=== PATIENT | female | born 1960 | race Caucasian/White ===

== ENCOUNTER 2019-10-04 19:24 | Emergency (ER) | payer OTHER ==
--- NOTE | 2019-10-04 22:19 | EDPHYS ---
Physician Documentation [facility] Name: Kika Larson Age: 59 yrs Sex: Female : 1960 Arrival Date: 10/04/2019 Time: 19: Bed 20 Private MD: ED Physician Yobani Plata HPI: 10/04 20:47 This 59 yrs old Female presents to ER via Ambulatory with complaints of Hip rn Pain. 20:47 The patient or guardian reports pain. that occurred at home, sustained from misstep rn There is no obvious deformity, The patient is able to self ambulate. The patient is able to bear their full body weight. The complaints affect the right hip. Onset: The symptoms/episode began/occurred just prior to arrival. Modifying factors: The symptoms are alleviated by remaining still, the symptoms are aggravated by weight bearing. Associated signs and symptoms: Pertinent positives: None. Pertinent negatives: fever, incontinence, weakness. Severity of symptoms: At their worst the symptoms were mild, in the emergency department the symptoms are unchanged. The patient has experienced similar episodes in the past. Reports right hip pain, was standing in kitchen, stepped to side, not sure if twisted, but heard pop, then had right hip pain, no fall, no fever, has had problems with right hip before starting as baby, no previous fracture or dislocation. . 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 - Coronavirus screen:: The patient has NOT traveled to [place], [place], or [place] in the past 14 days. Proceed with normal triage process as indicated. The patient has NOT had contact with known/suspected case of Coronavirus? Proceed with normal triage procedures. - Social history:: Smoking status: Patient reports the use of cigarette tobacco products, smokes two packs cigarettes per day. - Family history:: not pertinent. - Ebola Screening: : No symptoms or risks identified at this time. - Hospitalizations: : No recent hospitalization is reported. ROS: 20:47 Constitutional: Negative for fever, chills, and weight loss, Eyes: Negative for injury, rn pain, redness, and discharge, Cardiovascular: Negative for chest pain, palpitations, and edema, Respiratory: Negative for shortness of breath, cough, wheezing, and pleuritic chest pain, Abdomen/GI: Negative for abdominal pain, nausea, vomiting, diarrhea, and constipation, Back: Negative for injury and pain, MS/Extremity: + right hip pain Neuro: Negative for headache, weakness, numbness, tingling, and seizure. Exam: 20:47 Constitutional: This is a well developed, well nourished patient who is awake, alert, rn and in no acute distress. Abdomen/GI: soft, non-tender Back: No spinal tenderness. No costovertebral tenderness. Full range of motion. MS/ Extremity: Pulses equal, no cyanosis. Neurovascular intact. + mild painful ROM right hip with lateral tenderness, no deformity, able to ambulate with limp Neuro: Awake and alert, GCS 15, oriented to person, place, time, and situation. Cranial nerves II-XII grossly intact. Motor strength 5/5 in all extremities. Sensory grossly intact. Cerebellar exam normal. Normal gait. Vital Signs: 20:04 BP 140 / 78; Pulse 85; Resp 17; Temp 98.4; Pulse Ox 99% ; Weight 117.93 kg; Pain 6/10; rv 21:09 BP 128 / 82; Pulse 80; Resp 18; Pulse Ox 99% ; wh 22:24 BP 124 / 78; Pulse 73; Resp 18; Pulse Ox 98% ; wh MDM: 20:09 Patient medically screened. rn 22:18 Differential diagnosis: hip fracture, intertrochanteric fracture, bursitis, arthritis, rn strain. Data reviewed: vital signs, nurses notes, radiologic studies, plain films, and as a result, I will discharge patient. Test interpretation: by ED physician or midlevel provider: plain radiologic studies, Xray pelvis and right hip neg for fracture/dislocation. Counseling: I had a detailed discussion with the patient and/or guardian regarding: the historical points, exam findings, and any diagnostic results supporting the discharge/admit diagnosis, radiology results, the need for outpatient follow up, to return to the emergency department if symptoms worsen or persist or if there are any questions or concerns that arise at home. Special discussion: I discussed with the patient/guardian in detail that at this point there is no indication for admission to the hospital. It is understood, however, that if the symptoms persist or worsen the patient needs to return immediately for re-evaluation. Further emergent ED testing is not indicated at this point in time. I discussed with the patient/guardian in detail the need to arrange with the PCP or specialist further outpatient testing, MRI. Administered Medications: No medications were administered Disposition: 10/04/19 22:19 Discharged to Home. Impression: Strain of muscle, fascia and tendon of right hip. - Condition is Stable. - Discharge Instructions: Hip Bursitis, Muscle Strain, Hip Pain. - Prescriptions for Medrol (Pravin) 4 mg Oral Tablets, Dose Pack - take 1 tablet by ORAL route as directed - follow package instructions; 1 packet. Cyclobenzaprine 5 mg Oral Tablet - take 1 tablet by ORAL route 3 times per day As needed; 15 tablet. - Medication Reconciliation Form, Thank You Letter, Antibiotic Education, Prescription Opioid Use form. - Follow up: Private Physician; When: As needed; Reason: Recheck today's complaints, Re-evaluation by your physician. - Problem is new. - Symptoms have improved. Signatures: Dispatcher [employer] EDMS Yobani Plata MD MD rn Habalo, Winsy wh Vicente, Ronaldo, RN RN rv Corrections: (The following items were deleted from the chart) 22: 22:19 10/04/2019 22:19 Discharged to Home. Impression: Strain of muscle, fascia and wh tendon of right hip. Condition is Stable. Forms are Medication Reconciliation Form, Thank You Letter, Antibiotic Education, Prescription Opioid Use. Follow up: Private Physician; When: As needed; Reason: Recheck today's complaints, Re-evaluation by your physician. Problem is new. Symptoms have improved. rn
--- NOTE | 2019-10-04 22:19 | ER ---
Nurse's Notes [facility] Name: Kika Larson Age: 59 yrs Sex: Female : 1960 Arrival Date: 10/04/2019 Time: 19:26 Bed 20 Private MD: Diagnosis: Strain of muscle, fascia and tendon of right hip Presentation: 10/04 20:02 Presenting complaint: Patient states: THROBBING PAIN ON THE RIGHT HIP RADIATES DOWN TO rv THE KNEE. SHE WAS IN THE KITCHEN AND TURNING TO THE SIDE, FELT SUDDEN PAIN. Transition of care: patient was not received from another setting of care. Onset of symptoms was October 04, 2019 at 18:00. Risk Assessment: Do you want to hurt yourself or someone else? Patient reports no desire to harm self or others. Initial Sepsis Screen: Does the patient meet any 2 criteria? No. Patient's initial sepsis screen is negative. Does the patient have a suspected source of infection? No. Patient's initial sepsis screen is negative. Care prior to arrival: None. 20:02 Method Of Arrival: Ambulatory rv 20:02 Acuity: MILTON 4 rv Historical: - Allergies: 20:06 Aspirin; rv - PMHx: 20:06 COPD; AUTONOMIC NERVOUS DYSFUNCTION; Arthritis; SMALL BLOCKAGE ON THE CAROTID ARTERY; rv - PSHx: 20:06 D \T\ C; Carpal Tunnel Repair; Cholecystectomy; rv - Immunization history:: Adult Immunizations up to date. - Coronavirus screen:: The patient has NOT traveled to [place], [place], or [place] in the past 14 days. Proceed with normal triage process as indicated. The patient has NOT had contact with known/suspected case of Coronavirus? Proceed with normal triage procedures. - Social history:: Smoking status: Patient reports the use of cigarette tobacco products, smokes two packs cigarettes per day. - Family history:: not pertinent. - Ebola Screening: : No symptoms or risks identified at this time. - Hospitalizations: : No recent hospitalization is reported. Screenin:10 Abuse screen: Denies threats or abuse. Denies injuries from another. Nutritional wh screening: No deficits noted. Tuberculosis screening: No symptoms or risk factors identified. Fall Risk None identified. Assessment: 20:10 General: Appears in no apparent distress. Behavior is calm, cooperative, appropriate wh for age. Pain: Complains of pain in Right hip Pain radiates to right leg Pain currently is 3 out of 10 on a pain scale. Quality of pain is described as throbbing. Neuro: Level of Consciousness is awake, alert, obeys commands, Oriented to person, place, time, situation, Appropriate for age. Cardiovascular: Capillary refill < 3 seconds. Respiratory: Airway is patent Respiratory effort is even, unlabored, Respiratory pattern is regular, symmetrical. GI: Abdomen is flat, non-distended. : No signs and/or symptoms were reported regarding the genitourinary system. EENT: No signs and/or symptoms were reported regarding the EENT system. Derm: Skin is intact, is healthy with good turgor, Skin is pink, warm \T\ dry. normal. Musculoskeletal: Circulation, motion, and sensation intact. 21:09 Reassessment: Patient appears in no apparent distress at this time. No changes from previously documented assessment. Patient and/or family updated on plan of care and expected duration. Pain level reassessed. Patient is alert, oriented x 3, equal unlabored respirations, skin warm/dry/pink. 22:24 Reassessment: Patient appears in no apparent distress at this time. No changes from previously documented assessment. Patient and/or family updated on plan of care and expected duration. Pain level reassessed. Patient is alert, oriented x 3, equal unlabored respirations, skin warm/dry/pink. Vital Signs: 20:04 BP 140 / 78; Pulse 85; Resp 17; Temp 98.4; Pulse Ox 99% ; Weight 117.93 kg; Pain 6/10; rv 21:09 BP 128 / 82; Pulse 80; Resp 18; Pulse Ox 99% ; wh 22:24 BP 124 / 78; Pulse 73; Resp 18; Pulse Ox 98% ; ED Course: 19:26 Patient arrived in ED. ds1 20:04 Triage completed. rv 20:07 Arm band placed on. rv 20:09 Yobani Plata MD is Attending Physician. rn 20:10 Patient has correct armband on for positive identification. Bed in low position. Call light in reach. Side rails up X 1. Pulse ox on. NIBP on. 20:14 Grace Fregoso is Primary Nurse. wh 21:03 XRAY Pelvis In Process Unspecified. EDMS 21:03 XRAY Hip RIGHT 2 view In Process Unspecified. EDMS 22:25 No provider procedures requiring assistance completed. Patient did not have IV access during this emergency room visit. 10/05 08:05 XRAY Pelvis In Process Unspecified. EDMS 08:05 XRAY Hip RIGHT 2 view In Process Unspecified. EDMS Administered Medications: No medications were administered Outcome: 10/04 22:19 Discharge ordered by . rn 22:25 Discharged to home ambulatory, with family. 22:25 Condition: stable 22:25 Discharge instructions given to patient, family, Instructed on discharge instructions, follow up and referral plans. medication usage, POC Demonstrated understanding of instructions, follow-up care, medications, POC Prescriptions given X 2. 22:26 Patient left the ED. Signatures: Dispatcher [employer] EDCO HunterAilyn ds1 Yobani Plata MD MD rn Habalo, Grace Alexandro Herr RN RN rv
[2019-10-04 22:49] VITALS: TEMP 98.4
[2019-10-04 22:52] VITALS: BP 124/78; O2SAT 98
--- NOTE | 2019-10-05 07:55 | RAD REPORT ---
EXAM DESCRIPTION: RAD - Pelvis - 10/04/2019 9:02 pm CLINICAL HISTORY: Right hip pain FINDINGS: No fracture or dislocation is seen. The bones are osteoporotic. Mild osteoarthritis involves the hips consisting joint space narrowing and subchondral sclerosis An erosion involves right inferior pubic ramus. It likely is benign. Follow up x-ray in 3 months marylou mmended to assess stability
--- NOTE | 2019-10-05 07:55 | RAD REPORT ---
EXAM DESCRIPTION: RAD - Hip Right 2 View - 10/04/2019 9:04 pm CLINICAL HISTORY: Right hip pain FINDINGS: No fracture or dislocation is seen. The bones are osteoporotic. Mild osteoarthritis involves the right hip consisting joint space narro wing and subchondral sclerosis An erosion involves the right inferior pubic ramus. It likely is benign. Follow up x-ray in 3 months recommended to assess stability
--- NOTE | 2019-10-05 13:48 | RAD REPORT ---
EXAM DESCRIPTION: RAD - Pelvis - 10/05/2019 9:18 am CLINICAL HISTORY: 59 years Female, PAIN COMPARISON: None. FINDINGS: No fracture or dislocation. Bone mineralization is normal. Joint spaces are preserved. Mild changes of the right hip. Incompletely characterized soft tissue swelling in the lateral proximal thigh. Scattered bilateral enthesophytes. IMPRESSION: No acute osseous abnormality. Electronically signed by: Marcello Lees DO 10/04/2019 10:08 PM SURGICAL SUPERVISOR Due to temporary technical issues with the PACS/Fluency reporting system, reports are being signed by the in house radiologist as a courtesy to ensure prompt reporting. The interpreting radiologist is f ully responsible for the content of the report.
--- NOTE | 2019-10-05 13:49 | RAD REPORT ---
EXAM DESCRIPTION: RAD - Hip Right 2 View - 10/05/2019 9:18 am CLINICAL HISTORY: 59 years Female, PAIN COMPARISON: None. FINDINGS: No fracture or dislocation. Bone mineralization is normal. Joint spaces are preserved. Mild changes of the right hip. Incompletely characterized soft tissue swelling in the lateral proximal thigh. Scattered bilateral enthesophytes. IMPRESSION: No acute osseous abnormality. Electronically signed by: Marcello Lees DO 10/04/2019 10:08 PM FERN CUTTER Due to temporary technical issues with the PACS/Fluency reporting system, reports are being signed by the in house radiologist as a courtesy to ensure prompt reporting. The interpreting radiologist is f ully responsible for the content of the report.
== END 2019-10-04 22:26 | disposition home or self-care (01) ==
LOC: ER 19:24
DX: S76.011A Strain of muscle, fascia and tendon of right hip, initial encounter (principal); X50.1XXA Overexertion from prolonged static or awkward postures, initial encounter; Y93.89 Activity, other specified; Y92.010 Kitchen of single-family (private) house as the place of occurrence of the external cause
CPT/HCPCS: 72170; 99283

== ENCOUNTER 2021-07-17 14:33 | Emergency (ER) | payer OTHER ==
[2021-07-17] MEDS ORDERED: ONDANSETRON 4 MG/2 ML VIAL ONE (15:27)
[2021-07-17] MEDS ORDERED: NA CHLORIDE 0.9% 1,000 ML ONE (15:27)
[2021-07-17 15:37] LABS: Absolute Lymphocytes (CBC) 2.7 K/uL (0.7-4.9); Basophils % 0.8 % (0-1.3); Hematocrit 42.3 % (36.0-45.0); Lymphocytes % 27.3 % (15.3-44.8); MPV 8.9 fL (7.6-11.3); RBC Red Blood Cell Count 4.88 M/uL (3.86-4.86)
[2021-07-17 16:29] LABS: ALT/SGPT 26 U/L (12-78); AST/SGOT 19 U/L (15-37); Albumin 3.3 g/dL (3.4-5.0); Alkaline Phosphatase 115 U/L (45-117); BUN Blood Urea Nitrogen 8 mg/dL (7-18); Bicarbonate 27 mmol/L (21-32); Bilirubin Direct < 0.1 mg/dL (0-0.2); Bilirubin Total 0.3 mg/dL (0.2-1.0); Glucose Level 93 mg/dL (74-106); Lipase 394 U/L (73-393); Protein, Total 6.8 g/dL (6.4-8.2); Sodium Level 144 mmol/L (136-145)
[2021-07-17] MEDS ORDERED: DICYCLOMINE HCL 10 MG CAP ONE (16:40)
--- NOTE | 2021-07-17 17:07 | ER ---
Nurse's Notes [facility] Name: Kika Larson Age: 61 yrs Sex: Female : 1960 Arrival Date: 07/17/2021 Time: 14:39 Bed 23 Private MD: Diagnosis: Diarrhea, unspecified Presentation: 07/17 14:49 Chief complaint: Patient states: abd cramping, nausea, and diarrhea that began 1 week aa5 ago. Pt denies vomiting, pt states "Dr. Iraheta sent me here because he said I was dehydrated according to the blood work". Pt c/o dizziness with movement. Coronavirus screen: diarrhea, nausea. Ebola Screen: No symptoms or risks identified at this time. Initial Sepsis Screen: Does the patient meet any 2 criteria? No. Patient's initial sepsis screen is negative. Does the patient have a suspected source of infection? No. Patient's initial sepsis screen is negative. Risk Assessment: Do you want to hurt yourself or someone else? Patient reports no desire to harm self or others. Onset of symptoms was June 2021. 14:49 Acuity: MILTON 3 aa5 14:49 Method Of Arrival: Ambulatory aa5 Historical: - Allergies: 14:50 Aspirin; aa5 14:50 Sulfa (Sulfonamide Antibiotics); aa5 - PMHx: 14:50 Arthritis; AUTONOMIC NERVOUS DYSFUNCTION; COPD; SMALL BLOCKAGE ON THE CAROTID ARTERY; aa5 - PSHx: 14:51 Cholecystectomy; carpal tunnel repair; D\\T\\C; aa5 - Immunization history:: Client reports having NOT received the Covid vaccine. - Social history:: Smoking status: Patient reports the use of cigarette tobacco products, smokes two packs cigarettes per day. Screenin:22 Abuse screen: Denies threats or abuse. Denies injuries from another. Nutritional ld1 screening: No deficits noted. Tuberculosis screening: No symptoms or risk factors identified. Fall Risk None identified. Assessment: 15:24 General: Appears in no apparent distress. comfortable, Behavior is calm, cooperative, ld1 appropriate for age. Pain: Denies pain. Neuro: Level of Consciousness is awake, alert, obeys commands, Oriented to person, place, time, situation, Appropriate for age Reports dizziness. Cardiovascular: Capillary refill < 3 seconds Patient's skin is warm and dry. Respiratory: Airway is patent Respiratory effort is even, unlabored, Respiratory pattern is regular, symmetrical. GI: Abdomen is round non-distended. GI: Reports diarrhea, nausea. : No signs and/or symptoms were reported regarding the genitourinary system. EENT: No signs and/or symptoms were reported regarding the EENT system. Derm: No signs and/or symptoms reported regarding the dermatologic system. Musculoskeletal: No signs and/or symptoms reported regarding the musculoskeletal system. 16:16 Reassessment: Patient appears in no apparent distress at this time. Patient and/or ld1 family updated on plan of care and expected duration. Pain level reassessed. Patient is alert, oriented x 3, equal unlabored respirations, skin warm/dry/pink. 17:14 Reassessment: Patient appears in no apparent distress at this time. No changes from ld1 previously documented assessment. Patient and/or family updated on plan of care and expected duration. Pain level reassessed. Patient is alert, oriented x 3, equal unlabored respirations, skin warm/dry/pink. Vital Signs: 14:49 BP 135 / 65; Pulse 83; Resp 18 S; Temp 98.0(TE); Pulse Ox 100% on R/A; Weight 120.2 kg aa5 (R); Height 5 ft. 6 in. (167.64 cm) (R); 15:16 BP 125 / 63 LA Supine; Pulse 78 LA; ld1 15:19 BP 135 / 75 LA Sitting; Pulse 80 LA; ld1 15:22 BP 118 / 74 LA Standing; Pulse 79 LA; ld1 16:16 BP 103 / 55; Pulse 86; Resp 18; Pulse Ox 99% on R/A; ld1 17:14 BP 105 / 58; Pulse 86; Resp 18; Pulse Ox 100% on R/A; ld1 14:49 Body Mass Index 42.77 (120.20 kg, 167.64 cm) aa5 ED Course: 14:39 Patient arrived in ED. as 14:49 Arm band placed on. aa5 14:50 Triage completed. aa5 14:54 Carol Azul FNP-C is [facility]. kb 14:54 Emily Solano MD is Attending Physician. kb 15:12 Ivana Godinez, STEVEN is Primary Nurse. ld1 15:22 Patient has correct armband on for positive identification. Bed in low position. Call ld1 light in reach. Side rails up X2. monitoring and evaluation advisor on. Pulse ox on. NIBP on. Door closed. Noise minimized. Warm blanket given. 15:22 No provider procedures requiring assistance completed. Inserted saline lock: 20 gauge ld1 in right antecubital area, using aseptic technique. Blood collected. 17:15 IV discontinued, intact, bleeding controlled, No redness/swelling at site. ld1 Administered Medications: 15:31 Drug: NS 0.9% 1000 ml Route: IV; Rate: 1 bolus; Site: right antecubital; ld1 15:31 Drug: Zofran (Ondansetron) 4 mg Route: IVP; Site: right antecubital; ld1 15:31 Follow up: Response: No adverse reaction ld1 16:42 Drug: Bentyl (dicyclomine) 20 mg Route: PO; ld1 16:42 Follow up: Response: No adverse reaction ld1 Outcome: 17:07 Discharge ordered by MD. xavier 17:15 Discharged to home ambulatory. ld1 17:15 Condition: stable 17:15 Discharge instructions given to patient, Instructed on discharge instructions, follow up and referral plans. medication usage, Demonstrated understanding of instructions, follow-up care, medications, Prescriptions given X 2. 17:15 Patient left the ED. ld1 Signatures: Carol Azul FNP-C FNP-Justine John Audri, RN RN aa5 Ivana Godinez RN RN ld1
--- NOTE | 2021-07-17 17:08 | EDPHYS ---
Physician Documentation [facility] Name: Kika Larson Age: 61 yrs Sex: Female : 1960 Arrival Date: 07/17/2021 Time: 14:39 Bed 23 Private MD: ED Physician Emily Solano HPI: 07/17 15:58 This 61 yrs old Female presents to ER via Ambulatory with complaints of kb Dehydration. 15:58 The patient presents to the emergency department with nausea, vomiting, diarrhea. kb Onset: The symptoms/episode began/occurred 9 day(s) ago. Possible causes: unknown. The symptoms are aggravated by food , The symptoms are alleviated by nothing. Associated signs and symptoms: Pertinent positives: diarrhea, nausea, vomiting, Pertinent negatives: abdominal pain, fever. Severity of symptoms: At their worst the symptoms were moderate in the emergency department the symptoms are unchanged. The patient has not experienced similar symptoms in the past. The patient has been recently seen by a physician: the patient's primary care provider, earlier today, with similar presenting complaints, and was sent to the [facility] Emergency Department for further evaluation. Pt reports nausea, diarrhea and abd cramps for 9 days. States the cramps come right before an episode of diarrhea. Went to Dr Iraheta today and he told her she looked dehydrated so she should come to the ER. Reports dizziness at times when changing positions. . 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 - Social history:: Smoking status: Patient reports the use of cigarette tobacco products, smokes two packs cigarettes per day. ROS: 16:00 Constitutional: Negative for fever, chills, and weight loss. kb 16:00 Abdomen/GI: Positive for nausea, diarrhea, abdominal cramps. 16:00 All other systems are negative. 16:00 Neuro: Positive for dizziness. kb Exam: 16:01 Constitutional: This is a well developed, well nourished patient who is awake, alert, kb and in no acute distress. Head/Face: Normocephalic, atraumatic. ENT: Moist Mucous membranes Respiratory: Respirations even and unlabored. No increased work of breathing, no retractions or nasal flaring. Abdomen/GI: Soft, non-tender. No distention Skin: Warm, dry with normal turgor. Normal color. MS/ Extremity: Pulses equal, no cyanosis. Neurovascular intact. Full, normal range of motion. Neuro: Awake and alert, GCS 15, oriented to person, place, time, and situation. Moves all extremities. Normal gait. Psych: Awake, alert, with orientation to person, place and time. Behavior, mood, and affect are within normal limits. Vital Signs: 14:49 BP 135 / 65; Pulse 83; Resp 18 S; Temp 98.0(TE); Pulse Ox 100% on R/A; Weight 120.2 kg aa5 (R); Height 5 ft. 6 in. (167.64 cm) (R); 15:16 BP 125 / 63 LA Supine; Pulse 78 LA; ld1 15:19 BP 135 / 75 LA Sitting; Pulse 80 LA; ld1 15:22 BP 118 / 74 LA Standing; Pulse 79 LA; ld1 16:16 BP 103 / 55; Pulse 86; Resp 18; Pulse Ox 99% on R/A; ld1 17:14 BP 105 / 58; Pulse 86; Resp 18; Pulse Ox 100% on R/A; ld1 14:49 Body Mass Index 42.77 (120.20 kg, 167.64 cm) aa5 MDM: 14:54 Patient medically screened. kb 15:58 Data reviewed: vital signs, nurses notes. Data interpreted: Pulse oximetry: on room air kb is 100 %. Interpretation: normal. 16:36 Counseling: I had a detailed discussion with the patient and/or guardian regarding: the kb historical points, exam findings, and any diagnostic results supporting the discharge/admit diagnosis, lab results, the need for outpatient follow up, a family practitioner, to return to the emergency department if symptoms worsen or persist or if there are any questions or concerns that arise at home. 07/17 14:55 Order name: Basic Metabolic Panel; Complete Time: 16:35 kb 07/17 14:55 Order name: CBC with Diff; Complete Time: 15:51 kb 07/17 14:55 Order name: Hepatic Function; Complete Time: 16:35 kb 07/17 14:55 Order name: Lipase; Complete Time: 16:35 kb 07/17 14:55 Order name: IV Saline Lock; Complete Time: 15:26 kb 07/17 14:55 Order name: Labs collected and sent; Complete Time: 15:26 kb 07/17 14:55 Order name: Orthostatics; Complete Time: 15:26 kb Administered Medications: 15:31 Drug: NS 0.9% 1000 ml Route: IV; Rate: 1 bolus; Site: right antecubital; ld1 15:31 Drug: Zofran (Ondansetron) 4 mg Route: IVP; Site: right antecubital; ld1 15:31 Follow up: Response: No adverse reaction ld1 16:42 Drug: Bentyl (dicyclomine) 20 mg Route: PO; ld1 16:42 Follow up: Response: No adverse reaction ld1 Disposition: 07/18 09:12 Co-signature as Attending Physician, Emily Solano MD I agree with the assessment and sp3 plan of care. Disposition Summary: 07/17/21 17:07 Discharge Ordered Location: Home kb Condition: Stable kb Diagnosis - Diarrhea, unspecified kb Followup: kb - With: Emergency Department - When: As needed - Reason: Worsening of condition Followup: kb - With: Private Physician - When: 2 - 3 days - Reason: Recheck today's complaints, Continuance of care, Re-evaluation by your physician Discharge Instructions: - Discharge Summary Sheet kb - Food Choices to Help Relieve Diarrhea, Adult kb - Diarrhea, Adult, [id number] kb Forms: - Medication Reconciliation Form kb - Thank You Letter kb - Antibiotic Education kb - Prescription Opioid Use kb Prescriptions: - Zofran 4 mg Oral Tablet - take 1 tablet by ORAL route every 6 hours As needed; 20 tablet; Refills: 0, kb Product Selection Permitted - dicyclomine 20 mg Oral Tablet - take 1 tablet by ORAL route 4 times per day As needed; 20 tablet; Refills: 0, kb Product Selection Permitted Signatures: Dispatcher [employer] EDCarol Vallejo FNP-C FNP-Ckb Calderon, Audri RN RN aa5 Ivana Godinez RN RN ld1 Emily Solano MD MD sp3 Corrections: (The following items were deleted from the chart) 07/17 16:01 15:58 Pt reports nausea, diarrhea and abd cramps for 9 days. States the cramps come kb right before an episode of diarrhea. Went to Dr Iraheta today and he told her she looked dehydrated so she should come to the ER. . kb
[2021-07-17 17:57] VITALS: TEMP 98
[2021-07-17 18:03] VITALS: BP 105/58; O2SAT 100
== END 2021-07-17 17:15 | disposition home or self-care (01) ==
LOC: ER 14:33
DX: R19.7 Diarrhea, unspecified (principal); F17.210 Nicotine dependence, cigarettes, uncomplicated; Z88.2 Allergy status to sulfonamides; Z88.6 Allergy status to analgesic agent
CPT/HCPCS: 85025; 80048; 36415; 80076; 83690; 96374; 99284; J7030; J2405